=== PATIENT | male | born 1950 | race Hispanic/Latino ===

== ENCOUNTER 2018-05-28 15:55 | Emergency (ER) | payer MEDICARE ==
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
== END 2018-05-28 18:32 | disposition home or self-care (01) ==
LOC: ERS 15:55
DX: R07.89 Other chest pain (principal); M54.5 Low back pain; M25.561 Pain in right knee; M25.562 Pain in left knee; M79.672 Pain in left foot; I10 Essential (primary) hypertension; E11.9 Type 2 diabetes mellitus without complications; E78.00 Pure hypercholesterolemia, unspecified; F03.90 Unspecified dementia, unspecified severity, without behavioral disturbance, psychotic disturbance, mood disturbance, and anxiety; V43.52XA Car driver injured in collision with other type car in traffic accident, initial encounter
CPT/HCPCS: 70450; 71046; 72125; 72131

== ENCOUNTER 2018-10-03 19:30 | Outpatient (CLI) | payer MEDICARE | END 2018-10-03 19:31 | disposition home or self-care (01) | LOC: SLEEPLAB 19:30 | PROVIDERS: ATTEND Family Medicine | DX: G47.33 Obstructive sleep apnea (adult) (pediatric) (principal); R53.83 Other fatigue; I10 Essential (primary) hypertension; E66.9 Obesity, unspecified; Z68.37 Body mass index [BMI] 37.0-37.9, adult | CPT/HCPCS: 95810 ==

== ENCOUNTER 2018-10-28 19:30 | Outpatient (CLI) | payer MEDICARE | END 2018-10-28 19:31 | disposition home or self-care (01) | LOC: SLEEPLAB 19:30 | PROVIDERS: ATTEND Family Medicine | DX: G47.33 Obstructive sleep apnea (adult) (pediatric) (principal); R53.83 Other fatigue; I10 Essential (primary) hypertension; G47.10 Hypersomnia, unspecified; R06.83 Snoring; E66.9 Obesity, unspecified; Z68.36 Body mass index [BMI] 36.0-36.9, adult | CPT/HCPCS: 95811 ==

== ENCOUNTER 2018-10-29 06:10 | Emergency (ER) | payer MEDICARE ==
[2018-10-29] MEDS ORDERED: Fentanyl 100 MCG/2 ML VIAL ONE (06:22)
[2018-10-29] MEDS ORDERED: Ondansetron PF 4 MG/2 ML Vial ONE (06:22)
[2018-10-29] MEDS ORDERED: PROPOFOL 0 ML ONE (06:28)
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
--- NOTE | 2018-10-29 07:27 | RAD ---
RIGHT SHOULDER PORTABLE SERIES: Date: 10/29/18 INDICATION: Post reduction evaluation. FINDINGS: Interval restored alignment of the shoulder. There is narrowing of the subacromial space with osteoar thritis. No discrete evidence for displaced fracture. IMPRESSION: 1. Restored alignment of right shoulder without evidence of a displaced fracture. 2. Osteoarthritis. POS: [facility]
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
== END 2018-10-29 07:23 | disposition home or self-care (01) ==
LOC: ERS 06:10
DX: S43.014A Anterior dislocation of right humerus, initial encounter (principal); I10 Essential (primary) hypertension; E11.9 Type 2 diabetes mellitus without complications; E78.00 Pure hypercholesterolemia, unspecified; F03.90 Unspecified dementia, unspecified severity, without behavioral disturbance, psychotic disturbance, mood disturbance, and anxiety; I25.10 Atherosclerotic heart disease of native coronary artery without angina pectoris; Z79.899 Other long term (current) drug therapy; Z79.84 Long term (current) use of oral hypoglycemic drugs; W19.XXXA Unspecified fall, initial encounter
CPT/HCPCS: 23650; 70450; 72125; 96374; 96375; J2405; J2704; J3010

== ENCOUNTER 2020-03-04 13:34 | Emergency (ER) | payer MEDICARE ==
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
== END 2020-03-04 15:39 | disposition home or self-care (01) ==
LOC: ERS 13:34
DX: S01.81XA Laceration without foreign body of other part of head, initial encounter (principal); I10 Essential (primary) hypertension; E11.9 Type 2 diabetes mellitus without complications; E78.00 Pure hypercholesterolemia, unspecified; F03.90 Unspecified dementia, unspecified severity, without behavioral disturbance, psychotic disturbance, mood disturbance, and anxiety; Z79.899 Other long term (current) drug therapy; W01.10XA Fall on same level from slipping, tripping and stumbling with subsequent striking against unspecified object, initial encounter
CPT/HCPCS: 12011; 70450; 71045; 72125

== ENCOUNTER 2021-06-05 11:23 | Emergency (ER) | payer OTHER, MEDICARE ==
[2021-06-05] MEDS ORDERED: Lidocaine 1% (PF) 30 ML VIAL ONE (14:40)
[2021-06-05] MEDS ORDERED: Boostrix 0.5 ML (Tdap) VIAL ONE (15:51)
== END 2021-06-05 16:00 | disposition home or self-care (01) ==
LOC: ERS 11:23
DX: S01.81XA Laceration without foreign body of other part of head, initial encounter (principal); I10 Essential (primary) hypertension; E11.9 Type 2 diabetes mellitus without complications; Z79.899 Other long term (current) drug therapy; W01.0XXA Fall on same level from slipping, tripping and stumbling without subsequent striking against object, initial encounter
CPT/HCPCS: 12013; 90471; 90715; J2001

== ENCOUNTER 2022-04-17 10:03 | Outpatient (CLI) | payer OTHER | END 2022-04-17 10:04 | disposition home or self-care (01) | PROVIDERS: ATTEND Student in an Organized Health Care Education/Training Program | DX: M17.0 Bilateral primary osteoarthritis of knee (principal); F03.90 Unspecified dementia, unspecified severity, without behavioral disturbance, psychotic disturbance, mood disturbance, and anxiety ==

== ENCOUNTER 2023-06-14 07:15 | Emergency (ER) | payer OTHER ==
[2023-06-14] MEDS ORDERED: Acetaminophen 325 MG TAB ONE (09:08)
== END 2023-06-14 09:19 | disposition home or self-care (01) ==
LOC: ERS 07:15
DX: M17.12 Unilateral primary osteoarthritis, left knee (principal); I10 Essential (primary) hypertension; E11.9 Type 2 diabetes mellitus without complications; E78.00 Pure hypercholesterolemia, unspecified; Z79.899 Other long term (current) drug therapy

== ENCOUNTER 2024-12-26 13:51 | Inpatient (IN) | payer OTHER ==
[2024-12-26 14:24] LABS: #Basophils 0.03 10x3/uL (0.0-0.2); #Eosinophils 0.06 10x3/uL (0.0-0.7); #Monocytes 0.85 10x3/uL (0.11-0.59); #Neutrophils 9.81 10x3/uL (1.40-6.50); %Basophils 0.2 % (0.0-1.0); %Eosinophils 0.5 % (0.0-10.0); %Lymphocytes 16.1 % (21.0-51.0); %Monocytes 6.6 % (0.0-10.0); %Neutrophils 76.1 % (42.0-75.0); Hematocrit 40.9 % (42.0-52.0); Hemoglobin 13.3 g/dL (14.0-18.0); Mean Corpuscular Hemoglobin 30.4 pg (27.0-31.0); Mean Corpuscular Volume 93.4 fL (78.0-98.0); Platelet Count 268 10x3/uL (130-400); Red Blood Cell (RBC) Count 4.38 mill/uL (4.70-6.10); White Blood Cell (WBC) Count 12.90 10x3/uL (4.8-10.8)
[2024-12-26 14:34] LABS: ALT (SGPT) 58 U/L (Less than 45); AST (SGOT) 59 U/L (11-34); Albumin 3.3 g/dL (3.1-4.5); Alkaline Phosphatase 146 U/L (40-110); Anion Gap 19 mmol/L (10-20); BUN (Urea Nitrogen) 44 mg/dL (8.4-25.7); Bilirubin, Total 1.0 mg/dL (0.3-1.2); CK (CPK) 46 U/L (30-200); Calc. Creatinine Clearance 0 mL/min (70-130); Calcium 9.2 mg/dL (7.8-10.44); Carbon Dioxide 22 mmol/L (23-31); Chloride 98 mmol/L (98-107); Globulin 4.4 g/dL (2.4-3.5); Glucose 103 mg/dL (83-110); Potassium 4.4 mmol/L (3.5-5.1); Sodium 135 mmol/L (136-145)
[2024-12-26 14:39] LABS: Troponin I Less than 0.010 ng/mL (< 0.028)
[2024-12-26 16:08] LABS: CAUTI Indications for Culture Dysuria,urgency,freq; Glucose, Urine (Dipstick) Normal (Negative); Leukocyte 75 Leu/uL (Negative); Protein, Urine (Dipstick) 10 mg/dL (Neg-Trace); RBC/HPF None Seen HPF (0-3); Specific Gravity, Urine 1.018 (1.002-1.036)
[2024-12-26 16:10] LABS: Bacteria/HPF 1+ HPF (None Seen); Urine Culture Reflex Yes Yes
[2024-12-26] MEDS ORDERED: cefTRIAXone (ROCEPHIN) 2 GM VIAL ONE (16:35)
[2024-12-26] MEDS ORDERED: Ondansetron PF 4 MG/2 ML Vial IVP PRN (17:41)
[2024-12-26 18:06] VITALS: BMI 23.7
[2024-12-26] MEDS ORDERED: PNEUMOC 20-VAL CONJ-DIP CRM/PF 0.5 ML SYRINGE IM ONE (19:15)
[2024-12-26] MEDS: Vancomycin 1.25 GM / NS 250 ML VIAL-2-BAG IVPB SCH (20:07)
[2024-12-26] MEDS: Famotidine 20 MG TAB PO SCH (20:11)
[2024-12-26] MEDS ORDERED: Vancomycin 1 GM in Sodium Chloride 0.9% 250 ML 300 ML IVPB SCH (21:00)
[2024-12-27 05:16] LABS: #Basophils 0.03 10x3/uL (0.0-0.2); #Eosinophils 0.13 10x3/uL (0.0-0.7); #Monocytes 0.85 10x3/uL (0.11-0.59); #Neutrophils 7.87 10x3/uL (1.40-6.50); %Basophils 0.3 % (0.0-1.0); %Eosinophils 1.1 % (0.0-10.0); %Lymphocytes 21.3 % (21.0-51.0); %Monocytes 7.5 % (0.0-10.0); %Neutrophils 69.3 % (42.0-75.0); Hematocrit 35.1 % (42.0-52.0); Hemoglobin 11.4 g/dL (14.0-18.0); Mean Corpuscular Hemoglobin 30.4 pg (27.0-31.0); Mean Corpuscular Volume 93.6 fL (78.0-98.0); Platelet Count 194 10x3/uL (130-400); Red Blood Cell (RBC) Count 3.75 mill/uL (4.70-6.10); White Blood Cell (WBC) Count 11.36 10x3/uL (4.8-10.8)
[2024-12-27 05:29] LABS: Vancomycin, Random 16.7 ug/mL (See Comment)
[2024-12-27 05:55] LABS: ALT (SGPT) 48 U/L (Less than 45); AST (SGOT) 51 U/L (11-34); Albumin 2.6 g/dL (3.1-4.5); Alkaline Phosphatase 125 U/L (40-110); Anion Gap 11 mmol/L (10-20); BUN (Urea Nitrogen) 28 mg/dL (8.4-25.7); Bilirubin, Total 0.5 mg/dL (0.3-1.2); Calc. Creatinine Clearance 57 mL/min (70-130); Calcium 7.7 mg/dL (7.8-10.44); Carbon Dioxide 20 mmol/L (23-31); Chloride 110 mmol/L (98-107); Globulin 3.4 g/dL (2.4-3.5); Glucose 76 mg/dL (83-110); Potassium 3.8 mmol/L (3.5-5.1); Sodium 137 mmol/L (136-145)
[2024-12-27] MEDS: Sertraline 100 MG TAB PO SCH (08:48)
[2024-12-27] MEDS: Levothyroxine 150 MCG TAB PO SCH (08:48)
[2024-12-27] MEDS: Lisinopril 5 MG TAB PO SCH (08:49)
[2024-12-27] MEDS: Megestrol Acetate 800 MG/20 ML UDCUP PO SCH ×2 (10:46→20:03)
[2024-12-27] MEDS: Vancomycin 1 GM in Premix 1 BAG IVPB SCH (12:24)
[2024-12-28] MEDS: Acetaminophen 500 MG TAB PO PRN (01:54)
[2024-12-28] MEDS: Levothyroxine 150 MCG TAB PO SCH (05:09)
[2024-12-28] MEDS ORDERED: Levothyroxine 150 MCG TAB PO SCH (06:00)
[2024-12-28 08:14] LABS: #Basophils Less than 0.03 10x3/uL (0.0-0.2); #Eosinophils 0.19 10x3/uL (0.0-0.7); #Monocytes 0.79 10x3/uL (0.11-0.59); #Neutrophils 6.25 10x3/uL (1.40-6.50); %Basophils 0.2 % (0.0-1.0); %Eosinophils 2.0 % (0.0-10.0); %Lymphocytes 22.6 % (21.0-51.0); %Monocytes 8.4 % (0.0-10.0); %Neutrophils 66.5 % (42.0-75.0); Hematocrit 34.1 % (42.0-52.0); Hemoglobin 11.1 g/dL (14.0-18.0); Mean Corpuscular Hemoglobin 30.2 pg (27.0-31.0); Mean Corpuscular Volume 92.7 fL (78.0-98.0); Platelet Count 178 10x3/uL (130-400); Red Blood Cell (RBC) Count 3.68 mill/uL (4.70-6.10); White Blood Cell (WBC) Count 9.41 10x3/uL (4.8-10.8)
[2024-12-28 08:33] LABS: ALT (SGPT) 40 U/L (Less than 45); AST (SGOT) 38 U/L (11-34); Albumin 2.3 g/dL (3.1-4.5); Alkaline Phosphatase 110 U/L (40-110); Anion Gap 12 mmol/L (10-20); BUN (Urea Nitrogen) 16 mg/dL (8.4-25.7); Bilirubin, Total 0.6 mg/dL (0.3-1.2); Calc. Creatinine Clearance 66 mL/min (70-130); Calcium 7.7 mg/dL (7.8-10.44); Carbon Dioxide 19 mmol/L (23-31); Chloride 112 mmol/L (98-107); Globulin 3.3 g/dL (2.4-3.5); Glucose 71 mg/dL (83-110); Potassium 3.2 mmol/L (3.5-5.1); Sodium 140 mmol/L (136-145)
[2024-12-28] MEDS: Potassium Bicarbonate/Cit Ac 20 MEQ TAB PO SCH (09:06)
[2024-12-28 10:39] VITALS: BMI 23.7
[2024-12-28] MEDS: PNEUMOC 20-VAL CONJ-DIP CRM/PF 0.5 ML SYRINGE IM ONE (12:37)
[2024-12-28 13:03] VITALS: BP 104/64; TEMP 98.5
[2024-12-28] MEDS ORDERED: Famotidine 20 MG TAB PO SCH (21:00)
[2024-12-28] MEDS ORDERED: Cefdinir 300 MG CAP PO SCH (21:00)
== END 2024-12-28 12:42 | disposition home or self-care (01) | DRG 871 ==
LOC: ERS 13:51 → T4-B 16:47
PROVIDERS: ADMIT Family Medicine; ATTEND Internal Medicine
DX: A41.9 Sepsis, unspecified organism (principal); G93.41 Metabolic encephalopathy; N39.0 Urinary tract infection, site not specified; N17.9 Acute kidney failure, unspecified; R65.20 Severe sepsis without septic shock; F32.A Depression, unspecified; I10 Essential (primary) hypertension; E11.9 Type 2 diabetes mellitus without complications; E78.5 Hyperlipidemia, unspecified; I25.10 Atherosclerotic heart disease of native coronary artery without angina pectoris; Z95.1 Presence of aortocoronary bypass graft; Z98.890 Other specified postprocedural states; E86.0 Dehydration; E03.9 Hypothyroidism, unspecified; E87.6 Hypokalemia; Z79.899 Other long term (current) drug therapy; E78.49 Other hyperlipidemia
CPT/HCPCS: 36415; 71045; 80053; 80061; 80202; 81001; 82140; 82550; 83605; 84439; 84443; 84481; 84484; 85025; 87040; 87077; 87086; 87428; 90471; 90677; 93005; 96361; 96365; G0009; J0692; J0696; J3373; J7030; J7050